=== PATIENT | female | born 1995 | race Caucasian/White ===

== ENCOUNTER 2016-10-01 00:18 | Emergency (ER) | payer SELFPAY ==
[2016-10-01 00:32] VITALS: BP 145/97; PULSE 111; RESP 17; TEMP 98; O2SAT 98
--- NOTE | 2016-10-01 01:17 | ED PDOC ---
HPI: Psych/Substance Abuse Time Seen by Provider: 10/01/16 00:30 Chief Complaint (Nursing): Alcohol Ingestion Chief Complaint (Provider): alcohol intoxication History Per: Patient History/Exam Limitations: no limitations Onset/Duration Of Symptoms: Mins Current Symptoms Are (Timing): Still Present Additional Complaint(s): 21yo female with PMHx including depression and anxiety presents to the ED, brought in by EMS, for evaluation of alcohol intoxication. Patient admits to alcohol use however denies any medical or psychiatric complaints. Patient states she was from her friends after celebrating [employer]. Currently a student at [employer] and was forced to come to the ED for evaluation. Past Medical History Reviewed: Historical Data, Nursing Documentation, Vital Signs Vital Signs: Last Vital Signs Temp 98.0 F 10/01/16 00:29 Pulse 111 H 10/01/16 00:29 Resp 17 10/01/16 00:29 BP 145/97 H 10/01/16 00:29 Pulse Ox 98 10/01/16 00:29 - Medical History PMH: Anxiety, Depression - Surgical History Surgical History: No Surg Hx - Family History Family History: States: No Known Family Hx - Social History Current smoker - smoking cessation education provided: No Alcohol: Occasional Drugs: Denies - Allergies Allergies/Adverse Reactions: Allergies Allergy/AdvReac Type Severity Reaction Status Date / Time No Known Allergies Allergy Verified 10/01/16 00:31 Review of Systems ROS Statement: Except As Marked, All Systems Reviewed And Found Negative Physical Exam - Reviewed Nursing Documentation Reviewed: Yes Vital Signs Reviewed: Yes - Physical Exam Appears: Positive for: Well, No Acute Distress Head Exam: Positive for: ATRAUMATIC, NORMAL INSPECTION, NORMOCEPHALIC Skin: Positive for: Normal Color, Warm, Dry Eye Exam: Positive for: Normal appearance, EOMI, PERRL ENT: Positive for: Normal ENT Inspection Neck: Positive for: Normal, Painless ROM, Supple Cardiovascular/Chest: Positive for: Regular Rate, Rhythm. Negative for: Murmur , Tachycardia Respiratory: Positive for: Normal Breath Sounds. Negative for: Wheezing, Respiratory Distress Gastrointestinal/Abdominal: Positive for: Normal Exam, Soft. Negative for: Tenderness Back: Positive for: Normal Inspection Extremity: Positive for: Normal ROM. Negative for: Deformity, Swelling Neurologic/Psych: Positive for: Alert, Oriented, Mood/Affect (colorful ) - ECG O2 Sat by Pulse Oximetry: 98 Pulse Ox Interpretation: Normal (RA) Medical Decision Making Medical Decision Makin: Impression: 21yo female brought for evaluation of alcohol intoxication Patient clinically sober and stable for d/c. Patient contacted private car service to take her home to [facility] housing. Dx: alcohol use stable Scribe Attestation: Documented by Arlen Najera acting as a scribe for Farhat Park MD. Provider Scribe Attestation: All medical record entries made by the Scribe were at my direction and personally dictated by me. I have reviewed the chart and agree that the record accurately reflects my personal performance of the history, physical exam, medical decision making, and the department course for this patient. I have also personally directed, reviewed, and agree with the discharge instructions and disposition. Disposition - Clinical Impression Clinical Impression: Alcohol use - Patient ED Disposition Is Patient to be Admitted: No - Disposition Disposition: Routine/Home Disposition Time: 01:15 Condition: STABLE Instructions: At-Risk Alcohol Use (ED)
== END 2016-10-01 01:15 | disposition home or self-care (01) ==
LOC: H.ER 00:18
DX: F10.10 Alcohol abuse, uncomplicated (principal); F41.9 Anxiety disorder, unspecified